=== PATIENT | male | born 1950 | race Caucasian/White ===

== ENCOUNTER → 2023-11-02 | Outpatient (CLI) | payer MEDICARE | END | disposition home or self-care (01) | LOC: RAH 10:00 | PROVIDERS: ATTEND Family Medicine | DX: Z13.6 Encounter for screening for cardiovascular disorders (principal) | CPT/HCPCS: 76775 ==

== ENCOUNTER 2023-11-25 13:02 | Emergency (ER) | payer MEDICARE ==
[~2023-11-25] VITALS: Ht 170.2 cm; Wt 70.3 kg
[2023-11-25 13:37] LABS: BASOPHILS # (AUTO) 0.05 K/uL (0.00-0.20); BASOPHILS % (AUTO) 0.6 % (0.0-5.0); EOSINOPHILS # (AUTO) 0.05 K/uL (0.00-0.70); EOSINOPHILS % (AUTO) 0.6 % (0.0-8.0); IMMATURE GRANULOCYTE ABSOLUTE 0.06 K/uL (0-1); LYMPHOCYTES % (AUTO) 22.2 % (21.0-51.0); MEAN CORPUSCULAR HEMOGLOBIN 32.5 pg (27.0-33.0); MEAN CORPUSCULAR HGB CONC 35.8 g/dL (32.0-36.0); MEAN CORPUSCULAR VOLUME 90.9 fL (79-99); MONOCYTES # (AUTO) 0.9 K/uL (0.1-1.0); MONOCYTES % (AUTO) 10.5 % (3.0-13.0); NEUTROPHILS # (AUTO) 5.7 K/uL (1.8-7.7); NEUTROPHILS % (AUTO) 65.4 % (40.0-77.0); PLATELET COUNT (AUTO) 255 K/uL (130-400); RED CELL DISTRIBUTION WIDTH 12.5 % (11.0-15.5); WHITE BLOOD COUNT (AUTO) 8.8 K/uL (4.8-10.8)
[2023-11-25 13:50] LABS: CREATININE 0.9 mg/dL (0.5-1.3)
[2023-11-25 13:54] LABS: POTASSIUM 2.8 mmol/L (3.5-5.1)
[2023-11-25 14:15] LABS: B-TYPE NATRIURETIC PEPTIDE 123 pg/mL (0-100)
[2023-11-25 16:45] VITALS: BP 134/66; PULSE 74; RESP 16; O2SAT 98
== END 2023-11-25 16:50 | disposition home or self-care (01) ==
LOC: EDH 13:02
DX: R07.89 Other chest pain (principal); I10 Essential (primary) hypertension; E78.00 Pure hypercholesterolemia, unspecified; Z98.890 Other specified postprocedural states
CPT/HCPCS: 36415; 71045; 80048; 82550; 83880; 84484; 85025; 85378; 85651; 86140; 93005